=== PATIENT | male | born 1980 | race African-American/Black ===

== ENCOUNTER 2022-07-29 08:37 | Emergency (ER) | payer OTHER, SELFPAY ==
[2022-07-29 08:46] VITALS: BP 175/98; PULSE 90; RESP 18; TEMP 36.4; O2SAT 100
--- NOTE | 2022-07-29 08:51 | ED.MALEGU ---
HPI - Male Genitourinary General Chief complaint: Urogenital-Male Stated complaint: STI exposure Time Seen by Provider: 07/29/22 08:50 Source: patient Mode of arrival: ambulatory Limitations: no limitations History of Present Illness HPI Narrative: Patient is a 41-year-old previously healthy male presenting to the emergency department for evaluation after he was told that a sexual partner of his tested positive for trichomonas. Patient reports no recent intercourse with this person over the past 3 months. He denies penile pain or discharge. Denies vesicles or lesions. He denies scrotal or testicular pain. No edema or swelling. Patient denies history of sexual transmitted infection in the past. Patient [place] fever, chills, abdominal pain. Denies any other symptoms. Patient is requesting sexual transmitted infection testing. Review of Systems Review of Systems: CONSTITUTIONAL: Denies fever CARDIOVASCULAR: Denies chest pain RESPIRATORY: Denies cough or dyspnea. GASTROINTESTINAL: Denies abdominal pain SKIN: Denies rash MUSCULOSKELETAL: Denies back pain NEUROLOGIC: Denies headache [facility] Social History Social History (Updated 07/29/22 @ 09:56 by Rupinder Tucker MD) Smoking status: Current every day smoker Alcohol intake: never Substance use: current Substance use type: marijuana Gender identity (if verbalized by the patient): Male Exam Narrative: GENERAL: Awake, alert, conversant HEAD: Normocephalic, atraumatic. EYES: PERRLA and EOMI. ENT: Nares clear, no rhinorrhea or epistaxis. Mucous membranes moist. NECK: Supple. CHEST: No respiratory distress, breathing even and non labored HEART: Regular rate, sinus rhythm ABDOMEN:Non distended, non tender EXTREMITIES: Normal range of motion. No edema. SKIN: Warm, dry, no rash. NEURO:No focal deficits. Alert and oriented x3 Course Vital Signs Vital signs: Vital Signs Temperature 36.4 C L 07/29/22 08:46 Pulse Rate 90 07/29/22 08:46 Respiratory Rate 18 07/29/22 08:46 Blood Pressure 175/98 H 07/29/22 08:46 Pulse Oximetry 100 07/29/22 08:46 Oxygen Delivery Room Air 07/29/22 08:46 Temperature 36.4 C L 07/29/22 08:46 Pulse Rate 90 07/29/22 08:46 Respiratory Rate 18 07/29/22 08:46 Blood Pressure 175/98 H 07/29/22 08:46 Pulse Oximetry 100 07/29/22 08:46 Oxygen Delivery Room Air 07/29/22 08:46 MDM - Male Genitourinary MDM Narrative Medical decision making narrative: Patient presenting for evaluation of STI exposure. At the time of assessment, ABCs are intact and vital signs are stable. Patient without reported pain or symptoms. This seems consistent with exposure without symptoms. Shared decision making occurred with patient, patient would like to be treated for all potential STI exposures. Patient will be given treatment here in the ER per CDC protocol. Patient be discharged home his current recommendation for treatment of trichomonas in men is one-time treatment 2 g Flagyl which she was given in the ER. Patient then discharged home in stable condition. Lab Data Labs: Lab Results 07/29/22 07/29/22 07/29/22 Range/Units 09:37 09:37 09:37 C.trachomatis RNA (TMA) Pending N.gonorrhoeae RNA (TMA) Pending Trichomonas Direct ID Cancelled T. vaginalis Amp RNA Pending Discharge Plan Discharge Clinical Impression: Routine screening for STI (sexually transmitted infection) Patient Disposition: Home, Self-Care Condition: Stable Instructions: Sexually Transmitted Diseases (ED) Additional Instructions: You have been treated for trichomonas, chlamydia and gonorrhea. You will be contacted if your culture results were positive. If so you need to notify any additional partners of your exposures. Please contact your primary care physician for follow up from this visit. If you experience worsening pain, vomiting that does not stop, bleeding complications, chest pain, shortness of br
[2022-07-29] MEDS: LIDOCAINE HCL 1% PF 30 ML VIAL XX (10:02)
[2022-07-29] MEDS: metroNIDAZOLE 250 MG TABLET 2000 MG PO (10:03)
[2022-07-29] MEDS: cefTRIAXone 1 GM VIAL 0.5 GM IM (10:03)
[2022-07-29] MEDS: AZITHROMYCIN 250 MG TABLET 1000 MG PO (10:03)
== END 2022-07-29 10:31 | disposition home or self-care (01) ==
PROVIDERS: Emergency Provider Emergency Medicine
DX: Z11.3 Encounter for screening for infections with a predominantly sexual mode of transmission (principal); F17.200 Nicotine dependence, unspecified, uncomplicated
CPT/HCPCS: 87491; 87591; 87661; 96372; 99283; A9270; J0696